=== PATIENT | female | born 1980 | race Caucasian/White ===

== ENCOUNTER 2017-08-28 16:53 | Outpatient (CLI) | payer OTHER | END 2017-08-28 18:33 | disposition home or self-care (01) | LOC: OBT 16:53 → L-D 16:54 → OBT 18:33 | DX: O40.3XX0 Polyhydramnios, third trimester, not applicable or unspecified (principal); O09.523 Supervision of elderly multigravida, third trimester | CPT/HCPCS: 76815; 76817; 76818 ==

== ENCOUNTER 2017-09-03 18:32 | Outpatient (CLI) | payer OTHER ==
[2017-09-03] MEDS: LACTATED RINGER'S 1,000 ML IV (21:29)
== END 2017-09-03 22:10 | disposition home or self-care (01) ==
LOC: OBT 18:32 → L-D 18:32 → OBT 22:10
DX: O40.3XX0 Polyhydramnios, third trimester, not applicable or unspecified (principal); O09.523 Supervision of elderly multigravida, third trimester; Z3A.35 35 weeks gestation of pregnancy
CPT/HCPCS: 36415; 76815; 76818; 96360

== ENCOUNTER 2017-09-04 15:23 | Outpatient (CLI) | payer OTHER | END 2017-09-04 17:30 | disposition home or self-care (01) | LOC: OBT 15:23 → L-D 15:25 → OBT 17:30 | DX: O36.8130 Decreased fetal movements, third trimester, not applicable or unspecified (principal); O60.03 Preterm labor without delivery, third trimester; O09.523 Supervision of elderly multigravida, third trimester; Z3A.37 37 weeks gestation of pregnancy | CPT/HCPCS: 76818 ==

== ENCOUNTER 2017-09-07 19:14 | Outpatient (CLI) | payer OTHER | END 2017-09-07 21:20 | disposition home or self-care (01) | LOC: OBT 19:14 → L-D 19:15 → OBT 21:20 | DX: O09.523 Supervision of elderly multigravida, third trimester (principal); Z3A.38 38 weeks gestation of pregnancy | CPT/HCPCS: 76815; 76818 ==

== ENCOUNTER 2017-09-10 14:57 | Inpatient (IN) | payer OTHER ==
[2017-09-10] MEDS ORDERED: METHYLERGONOVINE 0.2 MG INJ IM (16:30)
[2017-09-10] MEDS ORDERED: OXYTOCIN 30 UNITS/LR 500 ML IV ×3 (16:30)
[2017-09-10] MEDS ORDERED: BUTORPHANOL 2 MG INJ IV (16:30)
[2017-09-10] MEDS ORDERED: IBUPROFEN 600 MG TAB PO (16:30)
[2017-09-10] MEDS ORDERED: MISOPROSTOL 200 MCG TAB PR (16:30)
[2017-09-10] MEDS ORDERED: CARBOPROST 250 MCG INJ IM (16:30)
[2017-09-10] MEDS ORDERED: LIDOCAINE 1% (MPF) 30 ML INJ INJ (16:30)
[2017-09-10] MEDS ORDERED: BUTORPHANOL 1 MG INJ IV (16:30)
[2017-09-10] MEDS ORDERED: OXYCODONE/ACETAMINOPHEN (5/325) TAB PO (16:30)
[2017-09-10 17:57] LABS: ADD MAN DIFF? NO
[2017-09-10 18:00] LABS: BASOPHILS % 0.3 % (0.0-2.0); EOSINOPHILS # 0.1 10^3/ul (0.0-0.5); EOSINOPHILS % 0.5 % (0.0-7.0); HEMATOCRIT 41.5 % (37.0-47.0); HEMOGLOBIN 14.1 g/dl (12.0-16.0); LYMPHOCYTES # 2.1 10^3/ul (0.8-2.9); LYMPHOCYTES % 20.4 % (15.0-51.0); MEAN CORPUSCULAR HEMOGLOBIN 30.3 pg (29.0-33.0); MEAN CORPUSCULAR VOLUME 89.2 fl (82.0-101.0); MEAN PLATELET VOLUME 10.9 fl (7.4-10.4); MONOCYTE # 0.6 10^3/ul (0.3-0.9); MONOCYTES % 6.1 % (0.0-11.0); NEUTROPHIL # 7.3 10^3/ul (1.6-7.5); NEUTROPHILS % 72.4 % (39.0-77.0); PLATELET COUNT 199 10^3/UL (140-415); RED BLOOD COUNT 4.65 10^6/ul (4.20-5.40)
[2017-09-10 18:30] LABS: INR 0.92; PROTIME 12.4 Sec (11.9-14.9)
[2017-09-10 18:31] LABS: PARTIAL THROMBOPLASTIN TIME 29.6 Sec (25.0-35.0)
[2017-09-10] MEDS: LACTATED RINGER'S 1,000 ML IV ×2 (19:05→22:20)
[2017-09-10 19:40] LABS: HEPATITIS B SURFACE ANTIGEN NEGATIVE (NEGATIVE)
[2017-09-10] MEDS: DINOPROSTONE 10 MG VAG SUPP VAG (20:00)
[2017-09-11] MEDS: LACTATED RINGER'S 1,000 ML IV ×3 (06:34→10:33)
[2017-09-11] MEDS ORDERED: FENTAnyl 2MCG/ML-ROPIV 0.2% 100 ML (07:47)
[2017-09-11] MEDS: OXYTOCIN 30 UNITS/LR 500 ML IV ×2 (07:56→15:02)
[2017-09-11] MEDS ORDERED: FENTAnyl 2MCG/ML-ROPIV 0.2% 100 ML BAG EPI (08:30)
[2017-09-11] MEDS ORDERED: ONDANSETRON 4 MG INJ IV ×2 (08:30→14:30)
[2017-09-11] MEDS ORDERED: KETOROLAC 30 MG INJ IV (08:30)
[2017-09-11] MEDS ORDERED: DIPHENHYDRAMINE 50 MG INJ IV (08:30)
[2017-09-11] MEDS ORDERED: NALOXONE (0.4 MG/ML) INJ IV (08:30)
[2017-09-11] MEDS ORDERED: HYDROmorphONE 0.5 MG/0.5 ML SYG IV ×2 (08:30)
[2017-09-11 13:47] LABS: AADO2 Cord Arterial 49.4 mmHg; Arterial Cord Blood pCO2 40.7 mmHG (25-50); CBA Base Excess 0 mmol/L; CBA COHb 1.1 %; CBA Oxygen Sat 91.1 mmHG; CBA Total Hemglobin 14.1 g/dl; Cord Blood Arterial pO2 51.6 mmHG (15.0-45.0); Fraction OxyHgb Cord Arterial 89.4 %; MODE ROOM AIR; MetHgb Cord Arterial 0.8 %; Sample Type CBA; Site CORD
[2017-09-11] MEDS ORDERED: DIPHENHYDRAMINE 25 MG CAP PO (14:30)
[2017-09-11] MEDS ORDERED: MISOPROSTOL 200 MCG TAB PR (14:30)
[2017-09-11] MEDS ORDERED: METHYLERGONOVINE 0.2 MG INJ IM (14:30)
[2017-09-11] MEDS ORDERED: DIBUCAINE 1% 30 GM OINT PR (14:30)
[2017-09-11] MEDS ORDERED: ACETAMINOPHEN 325 MG TAB PO ×2 (14:30)
[2017-09-11] MEDS ORDERED: OXYTOCIN 30 UNITS/LR 500 ML IV (14:30)
[2017-09-11] MEDS ORDERED: CARBOPROST 250 MCG INJ IM (14:30)
[2017-09-11] MEDS ORDERED: HYDROCODONE/APAP (5/325) TAB PO ×2 (14:30)
[2017-09-11] MEDS: IBUPROFEN 800 MG TAB PO (18:19)
[2017-09-11] MEDS: LANOLIN 7 GM TUBE TOP (19:47)
[2017-09-11] MEDS: BENZOCAINE 20% 56 ML SPRAY TOP (19:47)
[2017-09-11] MEDS: SENNA/DOCUSATE NA (8.6MG/50MG) TAB PO (20:18)
[2017-09-11 21:08] LABS: RAPID PLASMA REAGIN NONREACTIVE (NR)
[2017-09-12] MEDS: IBUPROFEN 800 MG TAB PO ×5 (00:03→23:44)
[2017-09-12] MEDS: SENNA/DOCUSATE NA (8.6MG/50MG) TAB PO ×2 (08:42→23:44)
[2017-09-12 09:23] LABS: ADD MAN DIFF? NO
[2017-09-12 09:28] LABS: BASOPHILS % 0.1 % (0.0-2.0); EOSINOPHILS # 0.1 10^3/ul (0.0-0.5); EOSINOPHILS % 1.2 % (0.0-7.0); HEMATOCRIT 32.4 % (37.0-47.0); LYMPHOCYTES # 1.9 10^3/ul (0.8-2.9); MEAN CORPUSCULAR VOLUME 88.3 fl (82.0-101.0); MEAN PLATELET VOLUME 11.1 fl (7.4-10.4); MONOCYTE # 0.7 10^3/ul (0.3-0.9); MONOCYTES % 8.3 % (0.0-11.0); NEUTROPHIL # 5.5 10^3/ul (1.6-7.5); NEUTROPHILS % 67.2 % (39.0-77.0); PLATELET COUNT 161 10^3/UL (140-415); RED BLOOD COUNT 3.67 10^6/ul (4.20-5.40)
[2017-09-12 09:28] LABS: WHITE BLOOD COUNT 8.1 10^3/ul (4.8-10.8)
[2017-09-13] MEDS: IBUPROFEN 800 MG TAB PO ×3 (06:04→18:13)
[2017-09-13] MEDS: DIPHTH/TET/ACEL PERTUSS (ADULT) 0.5 ML VIAL IM* (09:00)
[2017-09-13] MEDS: MEASLES,MUMPS,RUBELLA VACCINE INJ SC* (09:00)
[2017-09-13] MEDS: VARICELLA VACCINE LIVE/PF 1,350 UNIT/0.5 ML ML SC* (09:00)
[2017-09-13] MEDS: SENNA/DOCUSATE NA (8.6MG/50MG) TAB PO (09:13)
== END 2017-09-13 18:52 | disposition home or self-care (01) | DRG 775 ==
LOC: L-D 14:57 → PP1 09-11 15:55 → L-D 15:15
PROVIDERS: Obstetrics & Gynecology
PROC: 10D07Z6 Extraction of Products of Conception, Vacuum, Via Natural or Artificial Opening (ICD-10-PCS; principal; 2017-09-11)
PROC: 0UQMXZZ Repair Vulva, External Approach (ICD-10-PCS; 2017-09-11)
DX: O99.214 Obesity complicating childbirth (principal); E66.01 Morbid (severe) obesity due to excess calories; Z68.31 Body mass index [BMI] 31.0-31.9, adult; O36.63X0 Maternal care for excessive fetal growth, third trimester, not applicable or unspecified; Z3A.39 39 weeks gestation of pregnancy; Z37.0 Single live birth
CPT/HCPCS: 36600; 62319; 82803; 85025; 85610; 85730; 86592; 86850; 86900; 86901; 87340